=== PATIENT | female | born 1990 | race Caucasian/White ===

== ENCOUNTER 2016-10-28 16:26 | Emergency (ER) | payer SELFPAY ==
[~2016-10-28 16:26] MED LIST: BACT2OIN TOPICAL; BACT800T5 PO; DOXY100T PO; SULF-154 PO; XANA0.5T PO
[2016-10-28 16:28] VITALS: BP 118/80; PULSE 128; RESP 20; TEMP 98.3; O2SAT 95
== END 2016-10-28 18:10 | disposition left against medical advice (07) ==
LOC: NED 16:26
DX: Z53.21 Procedure and treatment not carried out due to patient leaving prior to being seen by health care provider (principal)
CPT/HCPCS: 99281

== ENCOUNTER 2017-04-23 01:51 | Emergency (ER) | payer SELFPAY ==
[~2017-04-23] VITALS: Ht 162.6 cm; Wt 57.0 kg
[2017-04-23 02:06] VITALS: BP 104/65; PULSE 97; RESP 18; O2SAT 98
[2017-04-23 03:06] LABS: BACTERIA, URINE MANY /hpf; BLOOD, URINE TRACE (NEG); COMMENT (UR) CULTURE INDICATED; CULTURE IF INDICATED CULTURE INDICATED; GLUCOSE,URINE NEG (NEG); HYALINE CAST, URINE 3 /lpf (RARE); KETONE, URINE 40 mg/dL (NEG); MUCUS URINE FEW /lpf (OCC); SQUAMOUS EPITHELIAL CELL URINE 19 /hpf (0-5); URINE COLOR YELLOW (YELLW/STRAW)
[2017-04-23 03:07] LABS: NITRITE,URINE POS (NEG)
--- NOTE | 2017-04-23 03:07 | PD ---
HPI Chief Complaint: Medical Clearance Time Seen by Provider: 02:12 Travel History International Travel<30 days: No Contact w/Intl Traveler<30days: No Traveled to known affect area: No History of Present Illness HPI AT [facility], STATES IS AND FEELS LIKE SHE MAY HAVE A UTI B/C SHE IS URINATING FREQUENTLY AND URGENCY PFSH Past Medical History Arthritis: No Autoimmune Disease: No Blood Disorders: No Anxiety: Yes Depression: Yes Cancer: No Cardiovascular Problems: No Cerebrovascular Accident: No Diabetes: No Diminished Hearing: No Endocrine: No Genitourinary: No Hepatitis: Yes (c) Immune Disorder: No Musculoskeletal: Yes Neurologic: No Psychiatric: No Reproductive: No Respiratory: No Migraines: Yes Seizures: No Tetanus Vaccination: < 5 Years Influenza Vaccination: Yes ?: : 0 Past Surgical History Abdominal Surgery: No AICD: No Arteriovenous Shunt: No Cardiac Surgery: No Ear Surgery: No Endocrine Surgery: No Eye Surgery: No Genitourinary Surgery: No Gynecologic Surgery: No Insulin Pump: No Joint Replacement: Yes (spinal fusion,plate screws lt arm) Oral Surgery: No Pacemaker: No Thoracic Surgery: No Other Surgery: Yes (BACK SURGERY) Social History Alcohol Use: Yes (SOCIALLY) Tobacco Use: Yes (1 PPD) Substance Use: Yes (iv drugs last 1700 04/22 mdma/meth/cocaine) Allergies-Medications (Allergen,Severity, Reaction): Coded Allergies: Ants (Verified Allergy, Severe, 06/22/15) Levaquin (Verified Allergy, Severe, Itching, 06/22/15) Peanut Allergy (Verified Allergy, Severe, Shortness of Breath, 06/22/15) Penicillin (Verified Allergy, Unknown, 06/22/15) Reported Meds & Prescriptions Reported Meds & Active Scripts Active Doxycycline Hyclate 100 mg (Doxycycline Hyclate) 100 Mg Tab 100 Mg PO BID TAKE UNTIL GONE Septra Ds (Trimethoprim/Sulfamethoxazole) Tab 1 Tab PO BID Bactrim DS (Sulfamethoxazole-Trimethoprim DS) 1 Tab Tab 1 Tab PO BID 7 Days Bactroban 2% Oint (22 gm) (Mupirocin) 22 Applic/22 Gm Oint 1 Applic TOPICAL Q12HR Reported Xanax 0.5 mg (Alprazolam) Alprazolam 0.5 mg Tab 1 Tab PO QID Review of Systems Genitourinary: Positive: Urgency, Frequency, Dysuria Physical Exam Narrative GENERAL: SKIN: Warm and dry. NO ABSCESS BUT MULTIPLE TRACK VINES NOTED, NO STREAKING NOTED HEAD: Atraumatic. Normocephalic. EYES: Pupils equal and round. No scleral icterus. No injection or drainage. ENT: No nasal bleeding or discharge. Mucous membranes pink and moist. NECK: Trachea midline. No JVD. CARDIOVASCULAR: Regular rate and rhythm. NO MURMUR RESPIRATORY: No accessory muscle use. Clear to auscultation. Breath sounds equal bilaterally. GASTROINTESTINAL: Abdomen soft, non-tender, nondistended. Hepatic and splenic margins not palpable. MUSCULOSKELETAL: Extremities without clubbing, cyanosis, or edema. No obvious deformities. NEUROLOGICAL: Awake and alert. Normal speech. PSYCHIATRIC: Appropriate mood and affect; insight and judgment normal. Data Data Last Documented VS Vital Signs Date Time Temp Pulse Resp B/P Pulse Ox O2 Delivery O2 Flow Rate FiO2 04/23/17 02:06 97 18 104/65 98 Orders Urinalysis - C+S If Indicated (04/23/17 02:13) Ed Urine Pregnancytest Poc (04/23/17 02:13) Urine Culture (04/23/17 02:44) Labs Laboratory Tests Test 04/23/17 02:44 Urine Color YELLOW Urine Turbidity CLOUDY Urine pH 7.0 Urine Specific [place] 1.017 Urine Protein 30 mg/dL Urine Glucose (UA) NEG mg/dL Urine Ketones 40 mg/dL Urine Occult Blood TRACE Urine Nitrite POS Urine Bilirubin NEG Urine Urobilinogen 2.0 MG/DL Urine Leukocyte Esterase LARGE Urine RBC 4 /hpf Urine WBC 86 /hpf Urine WBC Clumps MANY Urine Squamous Epithelial 19 /hpf Cells Urine Bacteria MANY /hpf Urine Hyaline Casts 3 /lpf Urine Mucus FEW /lpf Microscopic Urinalysis Comment CULTURE INDICATED MDM Medical Decision Making Medical Screen Exam Complete: Yes Emergency Medical Condition: Yes Medical Record Reviewed: Yes Differential Diagnosis UTI V (IUP) Narrative Course UA C/W UTI, UHCG POS AND BEDSIDE ULTRS TRANSABD NOTED IUP WITH FHT IN 140'S AND MOVEMENT PRESENT) Diagnosis Primary Impression: UTI Patient Instructions: General Instructions, Urinary Tract Infection in Women ( ED) Scripts Nitrofurantoin Monohydrate Macrocrystals (Macrobid)100 Mg [id number] Mg PO BID #14 CAP Ref 0 Prov:Ambrosio Joyner MD 04/23/17 Disposition: 01 DISCHARGE HOME Condition: Stable Ambrosio Joyner MD Apr 23, 2017 03:07
[2017-04-23] MEDS ORDERED: MACR100C2 PO (03:40)
[2017-04-23] MEDS ORDERED: NITROFURANTOIN MONOHYD MACROCR 100 MG CAP PO ONE (04:00)
[2017-04-23 06:00] VITALS: BP 90/51; PULSE 70; RESP 18; O2SAT 99
[2017-04-23 08:00] VITALS: BP 108/54; PULSE 78; RESP 16; TEMP 98; O2SAT 99
[2017-04-23 13:43] VITALS: BP 118/97
== END 2017-04-23 13:46 | disposition home or self-care (01) ==
LOC: NEPC 01:51
DX: N39.0 Urinary tract infection, site not specified (principal); F41.9 Anxiety disorder, unspecified; F32.9 Major depressive disorder, single episode, unspecified; B19.20 Unspecified viral hepatitis C without hepatic coma; F17.200 Nicotine dependence, unspecified, uncomplicated; Z79.899 Other long term (current) drug therapy; Z88.0 Allergy status to penicillin; Z88.8 Allergy status to other drugs, medicaments and biological substances
CPT/HCPCS: 81001; 84703; 87077; 87086; 87186; 99284

== ENCOUNTER 2017-05-02 14:38 | Emergency (ER) | payer SELFPAY ==
[~2017-05-02] VITALS: Ht 162.6 cm; Wt 58.0 kg
[~2017-05-02 14:38] MED LIST changes: -BACT2OIN TOPICAL; -BACT800T5 PO; -DOXY100T PO; +MACR100C2 PO; -SULF-154 PO; -XANA0.5T PO
[2017-05-02 15:12] VITALS: BP 96/61; PULSE 84; RESP 16; TEMP 98.5; O2SAT 98
[2017-05-02] MEDS ORDERED: VIST50CA PO (15:34)
[2017-05-02] MEDS ORDERED: CLON0.1T PO (15:34)
--- NOTE | 2017-05-02 15:34 | PD ---
HPI Chief Complaint: Complaint Time Seen by Provider: 15:07 Travel History International Travel<30 days: No Contact w/Intl Traveler<30days: No Traveled to known affect area: No History of Present Illness HPI The patient was seen and examined in the presence of the nurse. This patient was sent from [facility] where she is an inpatient for the last 10 days. She has concerns for UTI. She was seen here fairly recently for the same complaint and culture grew Escherichia coli sensitive to the Macrobid she took. She denies fever. She is . She has known IUP as she had transabdominal ultrasound at last visit here. Symptoms severity is mild. No alleviating factors. She does complain of some dysuria. No vaginal discharge. PFSH Past Medical History Arthritis: No Autoimmune Disease: No Blood Disorders: No Anxiety: Yes Depression: Yes Cancer: No Cardiovascular Problems: No Cerebrovascular Accident: No Diabetes: No Diminished Hearing: No Endocrine: No Genitourinary: No Hepatitis: Yes (c) Immune Disorder: No Musculoskeletal: Yes Neurologic: No Psychiatric: No Reproductive: No Respiratory: No Migraines: Yes Seizures: No ?: : 0 Past Surgical History Abdominal Surgery: No AICD: No Arteriovenous Shunt: No Cardiac Surgery: No Ear Surgery: No Endocrine Surgery: No Eye Surgery: No Genitourinary Surgery: No Gynecologic Surgery: No Insulin Pump: No Joint Replacement: Yes (spinal fusion,plate screws lt arm) Oral Surgery: No Pacemaker: No Thoracic Surgery: No Other Surgery: Yes (BACK SURGERY) Social History Alcohol Use: Yes (SOCIALLY) Tobacco Use: Yes (1 PPD) Substance Use: Yes (iv drugs last 17004/22 mdma/meth/cocaine) Allergies-Medications (Allergen,Severity, Reaction): Coded Allergies: Ants (Verified Allergy, Severe, 06/22/15) Levaquin (Verified Allergy, Severe, Itching, 06/22/15) Peanut Allergy (Verified Allergy, Severe, Shortness of Breath, 06/22/15) Penicillin (Verified Allergy, Unknown, 06/22/15) Reported Meds & Prescriptions Reported Meds & Active Scripts Active Macrobid (Nitrofurantoin Monoh/Nitrofur Macro) 100 Mg Cap 100 Mg PO BID Reported Clonidine (Clonidine HCl) 0.1 Mg Tab 0.1 Mg PO QID PRN Vistaril (Hydroxyzine Pamoate) 50 Mg Cap 50 Mg PO DAILY Review of Systems General / Constitutional: No: Fever Eyes: No: Visual changes HENT: No: Headaches Cardiovascular: No: Chest Pain or Discomfort Respiratory: No: Shortness of Breath Gastrointestinal: No: Abdominal Pain Genitourinary: Positive: Dysuria Musculoskeletal: No: Pain Skin: No Rash Neurologic: No: Weakness Psychiatric: No: Depression Endocrine: No: Polydipsia Hematologic/Lymphatic: No: Easy Bruising Physical Exam Narrative GENERAL: Well-nourished, well-developed patient in no apparent distress. SKIN: Focused skin assessment reveals old track rivero but no acute infection or abscess or cellulitis. Skin is Warm and dry. HEAD: Atraumatic. Normocephalic. EYES: Pupils equal and round. No scleral icterus. No injection or drainage. ENT: No nasal bleeding or discharge. Mucous membranes pink and moist. NECK: Trachea midline. No JVD. No meningeal signs CARDIOVASCULAR: Regular rate and rhythm. No murmur appreciated. RESPIRATORY: No accessory muscle use. Clear to auscultation. Breath sounds equal bilaterally. GASTROINTESTINAL: Abdomen soft, non-tender, nondistended. Hepatic and splenic margins not palpable. Gravid uterus measures up to about the level of the umbilicus MUSCULOSKELETAL: No obvious deformities. No clubbing. No cyanosis. No edema. NEUROLOGICAL: Awake and alert. No obvious cranial nerve deficits. Motor grossly within normal limits. Normal speech. PSYCHIATRIC: Appropriate mood and affect; insight and judgment normal. Data Data Last Documented VS Vital Signs Date Time Temp Pulse Resp B/P Pulse Ox O2 Delivery O2 Flow Rate FiO2 05/02/17 15:12 98.5 84 16 96/61 98 Room Air Orders Urinalysis - C+S If Indicated (05/02/17 15:18) Urine Culture (05/02/17 15:27) Labs Laboratory Tests Test 05/02/17 15:27 Urine Color YELLOW Urine Turbidity CLOUDY Urine pH 7.0 Urine Specific [place] 1.016 Urine Protein 30 mg/dL Urine Glucose (UA) NEG mg/dL Urine Ketones NEG mg/dL Urine Occult Blood SMALL Urine Nitrite NEG Urine Bilirubin NEG Urine Urobilinogen LESS THAN 2.0 MG/DL Urine Leukocyte Esterase LARGE Urine RBC 12 /hpf Urine WBC 33 /hpf Urine Squamous Epithelial <1 /hpf Cells Urine Amorphous Sediment RARE Urine Bacteria OCC /hpf Microscopic Urinalysis Comment CULTURE INDICATED MDM Medical Decision Making Medical Screen Exam Complete: Yes Emergency Medical Condition: Yes Medical Record Reviewed: Yes Differential Diagnosis UTI, cystitis, pyelonephritis Narrative Course I have reviewed the patient's electronic medical record. I reviewed her last visit including ultrasound results and urine culture results showing Escherichia coli Today's urinalysis shows 33 white cells as opposed to the 86 on last urinalysis Patient is afebrile and does not look septic or toxic. She is not tachycardic. She is minimally symptomatic complaining only of urinary symptoms. Urine will be cultured Given the fact that she is allergic to penicillin and I'm going to retreat with Macrobid as that has been culture proven to kill the coli in her. Would avoid fluoroquinolones in a patient. Escherichia coli was resistant to Bactrim No clinical suspicion of endocarditis or sepsis Diagnosis Primary Impression: Cystitis Additional Instructions: Follow-up with primary care Get care started as soon as you can Med/Other Pt SpecificInfo: Prescription(s) given Scripts Nitrofurantoin Monohydrate Macrocrystals (Macrobid)100 Mg [id number] Mg PO BID #14 CAP Ref 0 Prov:Joseph Denny MD 05/02/17 Disposition: 65 DISC TO [facility] Condition: Stable Joseph Denny MD May 02, 2017 15:34
[2017-05-02 16:00] LABS: BACTERIA, URINE OCC /hpf; BLOOD, URINE SMALL (NEG); COMMENT (UR) CULTURE INDICATED; CULTURE IF INDICATED CULTURE INDICATED; GLUCOSE,URINE NEG (NEG); KETONE, URINE NEG (NEG); NITRITE,URINE NEG (NEG); SQUAMOUS EPITHELIAL CELL URINE <1 /hpf (0-5); URINE COLOR YELLOW (YELLW/STRAW)
[2017-05-02] MEDS ORDERED: MACR100C2 PO (16:37)
== END 2017-05-02 16:58 ==
LOC: NEPD 14:38
DX: O08.83 Urinary tract infection following an ectopic and molar pregnancy (principal); N30.90 Cystitis, unspecified without hematuria; A49.8 Other bacterial infections of unspecified site; O99.340 Other mental disorders complicating pregnancy, unspecified trimester; F41.9 Anxiety disorder, unspecified; F32.9 Major depressive disorder, single episode, unspecified
CPT/HCPCS: 81001; 87077; 87086; 87186; 99283

== ENCOUNTER 2017-06-25 11:04 | Emergency (ER) | payer MEDICAID ==
[~2017-06-25 11:04] MED LIST changes: +FERR325T8 PO; -MACR100C2 PO; +MELA5TAB15 PO; +PREN1TAB30 PO; +ZOLO50TA PO
--- NOTE | 2017-06-25 13:04 | PD ---
HPI Chief Complaint Tinted urine in panty liner (Chris Cotter MD R1) Travel History International Travel<30 Days: No Contact w/Intl Traveler<30Days: No Known Affected Area: No (Chris Cotter MD R1) History of Present Illness HPI 27 year old at 30 and 3/7 who presented for tinged fluid in her panty liner. She states she has been wearing panty liners because when she sneezes or laughs she urinates. Noticed darker urine and her panty liner today and called her primary care's office who told her to come in. Patient says she's had no other discharge from below, including blood, or large gushes of fluid. No change in urine frequency/color/smell, pain on urination or itching . Stated she had a past UTI during that went to her kidneys and this does not feel like that. States she currently has no contractions, nausea, vomiting, fever, chills, pain in back, pain abdomen, pain in pelvis, change in bowel movements. 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 Alcohol Use: No Tobacco Use: No Substance Abuse: Yes (Chris Cotter MD R1) Allergies-Medications (Allergen,Severity, Reaction): Coded Allergies: insect venom (Unverified Allergy, Severe, 06/22/17) ipratropium (Unverified Allergy, Severe, Shortness of Breath, 06/22/17) levofloxacin (Unverified Allergy, Severe, Itching, 06/22/17) penicillin G (Unverified Allergy, Unknown, 06/22/17) Home Meds Active Scripts Melatonin (Melatonin) 5 Mg Tab, 5 MG PO HS for Provide Good Sleep, #30 TAB 0 Refills Prov:Chemo Giraldo MD, R3 06/22/17 Sertraline (Zoloft) 50 Mg Tab, 50 MG PO DAILY, #30 TAB 0 Refills Prov:Chemo Giraldo MD, R3 06/22/17 Ferrous Sulfate (Ferrous Sulfate) 325 Mg (65 Mg Iron) Tablet, 325 MG PO BIDPC for Nutritional Supplement, #60 TAB 0 Refills Prov:Chemo Giraldo MD, R3 06/15/17 Vit W/ Ferrous Fumara ( Vitamin 27-0.8 mg) 1 Tab Tab, 1 TAB PO DAILY, #30 TAB Prov:Chemo Giraldo MD, R3 06/03/17 Review of Systems General / Constitutional: No: Fever, Weight Loss, Chills Eyes: No: Diploplia, Blurred Vision, Visual changes HENT: No: Headaches, Vertigo, Lightheadedness Cardiovascular: No: Irregular Rhythm, Chest Pain or Discomfort, Palpitations, Tachycardia, Syncope Respiratory: No: Cough, Short of Breath, Wheezing Gastrointestinal: No: Nausea, Vomiting, Diarrhea, Abdominal Pain, Hematemesis, Constipation, Changes in Bowel Habits Genitourinary: Incontinence (When coughing or sneezing), No: Urgency, Frequency , Dysuria, Nocturia, Hematuria, Decreased Urinary Output, Oliguria Musculoskeletal: No: Limited ROM, Weakness Skin: No Rash, No Itching, No Dryness Neurologic: No: Weakness, Dizziness, Syncope Psychiatric: No: Anxiety, Depression Endocrine: No: Heat Intolerance, Cold Intolerance (Chris Cotter MD R1) Physical Exam Narrative GENERAL: Well-nourished, well-developed patient. SKIN: Warm and dry. HEAD: Normocephalic and atraumatic. EYES: No scleral icterus. No injection or drainage. ENT: No nasal drainage noted. Mucous membranes pink. Airway patent. NECK: Supple, trachea midline. No JVD. CARDIOVASCULAR: Regular rate and rhythm without murmurs, gallops, or rubs. RESPIRATORY: Breath sounds equal bilaterally. No accessory muscle use. ABDOMEN/GI: Abdomen soft, non-tender, bowel sounds present, no rebound, no guarding Gravid to 30 weeks size FHT's: Category: 1 Baseline: 140 Reactive: Y Variability: moderate Decels: none EXTREMITIES: No cyanosis or edema. BACK: Nontender without obvious deformity. No CVA tenderness. NEUROLOGICAL: Awake and alert. Motor and sensory grossly within normal limits. Five out of 5 muscle strength in all muscle groups. Normal speech. (Chris Cotter MD R1) MDM Narrative Course / MDM 27 Year old at 19 and 3/7 who presented for tinged fluid in her panty liner. No signs of pyelonephritis or other infection. Negative urine dip. Concentrated urine. - F/U UA and culture - Advised to increase water intake - Follow up with already scheduled outpatient OB next week - Advised to return for increasing symptoms, bleeding or other discharge, decreased movement, or active labor. Patient expressed understanding and agreed. (Chris Cotter MD R1) Attending Attestation Patient seen, examined, and discussed with Dr. Cotter. I agree with assessment and management as documented and discussed with me. Rosana presents with dark discoloration to her urine. She denies LOF, vaginal bleeding, or vaginal discharge and insists that the discoloration is urine. Work up reveals Category 1 tracing, no contractions, and a urine dipstick without signs of infection. Intrauterine : Pt has appt on Wednesday with OB provider, Dr Bandar Giraldo. Continue routine OB care. Mild dehydration: encouraged increased fluid intake. (Tati Chahal MD) Diagnosis Diagnosis: Primary Impression: Dehydration, mild Additional Impression: 30 weeks gestation of Disposition: DISCHARGE HOME Condition: Stable Additional Instructions: Follow up with your OB at your next scheduled appointment next week. Chris Cotter MD R1 Jun 25, 2017 13:04 Tati Chahal MD Jun 29, 2017 10:04
[2017-06-25 14:09] LABS: BACTERIA, URINE RARE /hpf; BLOOD, URINE NEG (NEG); GLUCOSE,URINE NEG (NEG); KETONE, URINE NEG (NEG); NITRITE,URINE NEG (NEG); PH, URINE 8.5 (5.0-8.5); SQUAMOUS EPITHELIAL CELL URINE 2 /hpf (0-5); URINE COLOR YELLOW (YELLW/STRAW)
[2017-06-25 14:15] LABS: COMMENT (UR) CULT NOT INDICATED; CULTURE IF INDICATED CULT NOT INDICATED
[2017-07-02 10:47] LABS: PHENCYCLIDINE URINE NEG (NEG)
[2017-07-02 10:48] LABS: BATH SALTS (MDPV) UR NEG (NEG); ECSTASY (MDMA) UR NEG (NEG); GABAPENTIN UR NEG (NEG); HEROIN (6-ACETYLMORPHINE) UR NEG (NEG); HYDROMORPHONE U NEG (NEG); K2 SPICE UR NEG (NEG); OBMETHADONE UR NEG (NEG)
[2017-07-14] MEDS ORDERED: CEPH-460 PO (10:54)
[2017-07-19] MEDS ORDERED: CEPH-460 PO (10:18)
[2017-07-23] MEDS ORDERED: ZOLO50TA PO (15:39)
[2017-08-17] MEDS ORDERED: CEPH-460 PO (10:46)
== END 2017-06-25 13:47 | disposition home or self-care (01) ==
LOC: HOBED 11:04
DX: O99.283 Endocrine, nutritional and metabolic diseases complicating pregnancy, third trimester (principal); E86.0 Dehydration; O98.413 Viral hepatitis complicating pregnancy, third trimester; B19.20 Unspecified viral hepatitis C without hepatic coma; Z3A.30 30 weeks gestation of pregnancy; Z79.899 Other long term (current) drug therapy
CPT/HCPCS: 80307; 81001; 99283; G0481

== ENCOUNTER → 2017-07-08 | Outpatient (CLI) | payer MEDICAID ==
[~2017-07-08] MED LIST changes: +CEPH-460 PO
== END ==
LOC: HPND 08:17
PROVIDERS: ATTEND Family Medicine
DX: O26.843 Uterine size-date discrepancy, third trimester (principal); O09.33 Supervision of pregnancy with insufficient antenatal care, third trimester; Z3A.32 32 weeks gestation of pregnancy
CPT/HCPCS: 76816

== ENCOUNTER 2017-11-10 13:44 | Emergency (ER) | payer SELFPAY ==
[~2017-11-10] VITALS: Ht 162.6 cm; Wt 54.5 kg
[~2017-11-10 13:44] MED LIST changes: -CEPH-460 PO; +FERR325T18 PO; -FERR325T8 PO; +MELA5 PO; -MELA5TAB15 PO; +NORE0.3513 PO
[2017-11-10 13:45] VITALS: BP 123/70; PULSE 70; RESP 16; TEMP 98.6; O2SAT 99
[2017-11-10] MEDS ORDERED: ACYC400T PO (15:18)
--- NOTE | 2017-11-10 15:19 | PD ---
HPI Chief Complaint: Oral / Dental Pain or Problem Time Seen by Provider: 15:10 Travel History International Travel<30 days: No Contact w/Intl Traveler<30days: No Traveled to known affect area: No History of Present Illness HPI 27-year-old female presents to the emergency Department with complaint of cold sores to her lips 2 days. Says she needs acyclovir. Natty does not work for her. Denies cold sores inside of her mouth. Denies sore throat, difficulty swallowing, unusual drooling. Denies fever, vomiting. Has not taken any medication or tried any treatments to alleviate her symptoms. Symptoms are mild in severity. Acyclovir will be a relieving factor. No known aggravating factors. Allergies as listed on the chart. Her primary care provider. Has no other medical complaints. No other modifying factors or associated signs and symptoms. PFSH Past Medical History Arthritis: No Autoimmune Disease: No Blood Disorders: No Anxiety: Yes Depression: Yes Cancer: No Cardiovascular Problems: No Cerebrovascular Accident: No Diabetes: No Diminished Hearing: No Endocrine: No Genitourinary: No Hepatitis: Yes (c) Immune Disorder: No Musculoskeletal: Yes Neurologic: No Psychiatric: No Reproductive: No Respiratory: No Migraines: Yes Seizures: No Tetanus Vaccination: < 5 Years ?: Not LMP: 11/03/2017 : 0 Past Surgical History Abdominal Surgery: No AICD: No Arteriovenous Shunt: No Cardiac Surgery: No Ear Surgery: No Endocrine Surgery: No Eye Surgery: No Genitourinary Surgery: No Gynecologic Surgery: No Insulin Pump: No Joint Replacement: Yes (spinal fusion,plate screws lt arm) Oral Surgery: No Pacemaker: No Thoracic Surgery: No Other Surgery: Yes (BACK SURGERY) Social History Alcohol Use: No Tobacco Use: No Substance Use: Yes ( mdma/meth/cocaine) Allergies-Medications (Allergen,Severity, Reaction): Coded Allergies: insect venom (Unverified Allergy, Severe, 11/10/17) ipratropium (Unverified Allergy, Severe, Shortness of Breath, 11/10/17) levofloxacin (Unverified Allergy, Severe, Itching, 11/10/17) penicillin G (Unverified Allergy, Unknown, 11/10/17) Reported Meds & Prescriptions Reported Meds & Active Scripts Active Acyclovir 400 Mg Tab 400 Mg PO TID 5 Days Zoloft (Sertraline HCl) 50 Mg Tab 50 Mg PO DAILY Review of Systems Except as stated in HPI: all other systems reviewed are Neg Physical Exam Narrative GENERAL: Well-nourished, well-developed female patient, in no acute distress SKIN: Warm and dry. HEAD: Atraumatic. Normocephalic. EYES: Pupils equal and round. No scleral icterus. No injection or drainage. ENT: Mucosa pink and moist. No erythema or exudates. No uvular edema. No uvular , palatal, or tonsillar deviation. Airway patent. Nasal turbinates appear normal without nasal blood, purulent drainage or septal hematoma. Oral mucosa with a crusted blister noted to the right upper lip and the left upper lip; without erythema, edema, drainage. No signs of infection. NECK: Trachea midline. CARDIOVASCULAR: Regular rate. RESPIRATORY: No accessory muscle use. GASTROINTESTINAL: Flat. MUSCULOSKELETAL: No obvious deformities. No clubbing. No cyanosis. No edema. NEUROLOGICAL: Awake and alert. Oriented 3. No obvious cranial nerve deficits. Motor grossly within normal limits. Normal speech. PSYCHIATRIC: Appropriate mood and affect; insight and judgment normal. Data Data Last Documented VS Vital Signs Date Time Temp Pulse Resp B/P (MAP) Pulse Ox O2 Delivery O2 Flow Rate FiO2 11/10/17 13:45 98.6 70 16 123/70 (87) 99 Room Air Orders Orders Ed Discharge Order (11/10/17 15:19) MDM Medical Decision Making Medical Screen Exam Complete: Yes Emergency Medical Condition: Yes Medical Record Reviewed: Yes Differential Diagnosis Cold sores, oral herpes, medical clearance Narrative Course 27-year-old female with cold sores. Requesting acyclovir. Says the only thing that works for her cold sores. Patient is afebrile and nontoxic appearing. Denies fever, vomiting. Acyclovir prescribed for home. Instructed patient to follow up with primary care provider. Patient verbalizes understanding and agreement with treatment plan. Patient is medically cleared and stable for discharge. Discussed reasons to return to the emergency department. Patient agrees with treatment plan. The patients vital signs are stable and the patient is stable for outpatient follow-up and treatment. Patient discharged home, stable and in no acute distress. Diagnosis Primary Impression: Cold sore Referrals: [facility] Primary Care Physician Patient Instructions: General Instructions, Oral Herpes Simplex Virus Infections (ED) Additional Instructions: Acyclovir as prescribed Ibuprofen or Tylenol as directed and as needed for pain Follow-up with primary care provider Return to the emergency department immediately with worsening of symptoms Med/Other Pt SpecificInfo: Prescription(s) given Scripts Acyclovir (Acyclovir) 400 Mg Tab 400 MG PO TID for Mgmt Viral Infection for 5 Days, TAB 0 Refills Prov: Niesha Rodriguez 11/10/17 Disposition: 01 DISCHARGE HOME Condition: Stable Niesha Rodriguez Nov 10, 2017 15:19
== END 2017-11-10 15:47 | disposition home or self-care (01) ==
LOC: NEPK 13:44
DX: B00.1 Herpesviral vesicular dermatitis (principal); F41.9 Anxiety disorder, unspecified; F32.9 Major depressive disorder, single episode, unspecified; Z86.19 Personal history of other infectious and parasitic diseases; Z79.899 Other long term (current) drug therapy; Z88.0 Allergy status to penicillin; Z88.8 Allergy status to other drugs, medicaments and biological substances
CPT/HCPCS: 99283